=== PATIENT | female | born 1965 | race Caucasian/White ===

== ENCOUNTER 2023-06-17 23:10 | Emergency (ER) | payer MEDICAID ==
[~2023-06-17] VITALS: Ht 154.9 cm; Wt 69.2 kg
[2023-06-17 23:27] VITALS: O2SAT 99
[2023-06-17 23:51] LABS: BASOPHILS % 0.7 % (0.0-2.0); HEMATOCRIT. 39.7 % (36.0-48.0); LYMPHOCYTES % 18.9 % (20.0-50.0); MEAN CORPUSCULAR HEMOGLOBIN 29.5 pg (28.0-32.0); MEAN CORPUSCULAR HGB CONC 32.7 g/dL (31.0-37.0); MEAN PLATELET VOLUME 9.1 fl (7.4-10.4); MONOCYTES % 9.9 % (2.0-8.0); NEUTROPHILS % 69.5 % (40.0-76.0); PLATELET 220 x1000/uL (130-400); RED BLOOD CELL COUNT 4.41 mill/uL (4.2-5.4); RED CELL DISTRIBUTION WIDTH 13.3 % (11.6-14.6); WHITE BLOOD COUNT 7.1 x1000/uL (4.5-11.0)
[2023-06-17 23:55] LABS: CHLORIDE 102 mEq/L (98-107); INDEX HEMOLYSI 1 (1-3); INDEX ICTERIC 1 (1-4); INDEX LIPEMIC 1 (1-3); SODIUM 135 mEq/L (136-145)
[2023-06-18 00:04] LABS: ALANINE AMINOTRANSFERASE 29 IU/L (13-61); ASPARTATE AMINOTRANSFERASE 23 IU/L (15-37); BILIRUBIN TOTAL 0.4 mg/dL (0.1-1.0); CALCIUM 8.7 mg/dL (8.5-10.1); CARBON DIOXIDE 25 mEq/L (21-32); CREATININE 0.6 mg/dL (0.6-1.3); GLUCOSE 136 mg/dL (70-105); PROTEIN TOTAL 8.7 g/dL (6.0-8.3); UREA NITROGEN BLOOD 10 mg/dL (7-21)
[2023-06-18 01:34] LABS: CLARITY URINE CLEAR (CLEAR); COLOR URINE YELLOW (YELLOW); GLUCOSE URINE NEGATIVE (NEGATIVE); KETONES URINE NEGATIVE (NEGATIVE); LEUKOCYTE ESTERASE URINE TRACE (NEGATIVE); NITRITE URINE NEGATIVE (NEGATIVE); OCCULT BLOOD URINE TRACE (NEGATIVE); PROTEIN URINE NEGATIVE (NEGATIVE); SPECIFIC GRAVITY URINE 1.014 (1.005-1.030); UROBILINOGEN URINE 0.2 E.U./dL (0.2-1.0)
[2023-06-18 01:36] LABS: BACTERIA URINE NONE SEEN; WBC URINE 0-2 /hpf (0-2); YEAST URINE NONE SEEN
[2023-06-18 02:36] LABS: SQUAMOUS EPITHELIAL CELL URINE FEW /lpf (RARE/1+)
[2023-06-18 02:37] LABS: RBC URINE 0-2 /hpf (0-2)
[2023-06-18 02:41] VITALS: BP 148/60; PULSE 70; RESP 18; TEMP 98.8
== END 2023-06-18 03:22 | disposition home or self-care (01) ==
LOC: ER 23:10
DX: U07.1 COVID-19 (principal); Z87.19 Personal history of other diseases of the digestive system; R42 Dizziness and giddiness; R06.02 Shortness of breath
CPT/HCPCS: 99284; 80053; 81025; 85025; 36415; 71045; 87426; 81003; C9803